=== PATIENT | male | born 1955 | race Caucasian/White ===

== ENCOUNTER 2020-11-10 21:10 | Emergency (ER) | payer BC | END 2020-11-11 03:15 | disposition home or self-care (01) | LOC: ER1 21:10 | DX: U07.1 COVID-19 (principal); I25.10 Atherosclerotic heart disease of native coronary artery without angina pectoris; E78.5 Hyperlipidemia, unspecified; E11.9 Type 2 diabetes mellitus without complications; I10 Essential (primary) hypertension; Z90.49 Acquired absence of other specified parts of digestive tract; Z23 Encounter for immunization; Z88.6 Allergy status to analgesic agent | CPT/HCPCS: 71045; 99284; M0243 ==